=== PATIENT | female | born 1965 | race Hispanic/Latino ===

== ENCOUNTER 2021-07-05 08:41 | Emergency (ER) | payer OTHER ==
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
[2021-07-05] MEDS ORDERED: LIDOCAINE 1% W/EPI 1:100,000 MDV 20 ML VIAL ONE (11:03)
[2021-07-05 12:35] VITALS: TEMP 98.2; O2SAT 100
[2021-07-05 12:37] VITALS: BP 130/69
== END 2021-07-05 12:29 | disposition home or self-care (01) ==
LOC: ER 08:41
PROC: 0JQG0ZZ Repair Right Lower Arm Subcutaneous Tissue and Fascia, Open Approach (ICD-10-PCS; principal; 2021-07-05)
DX: S61.511A Laceration without foreign body of right wrist, initial encounter (principal); V40.5XXA Car driver injured in collision with pedestrian or animal in traffic accident, initial encounter; Z88.0 Allergy status to penicillin; Z88.2 Allergy status to sulfonamides
CPT/HCPCS: 99283